=== PATIENT | female | born 1955 | race Caucasian/White ===

== ENCOUNTER 2019-04-20 14:54 | Emergency (ER) | payer BC ==
--- NOTE | 2019-04-20 15:50 | EDM.PDOC ---
<Dilia Renteria - Last Filed: 04/20/19 15:40> ED HPI GENERAL MEDICAL PROBLEM - General Chief Complaint: Chest Pain Stated Complaint: CHEST/BACK TIGHTNESS/DIARRHEA Time Seen by Provider: 04/20/19 15:16 Source of Information: Reports: Patient History Limitations: Reports: No Limitations - History of Present Illness INITIAL COMMENTS - FREE TEXT/NARRATIVE: Patient is a pleasant 63-year-old female who presents to the ED with complaints of two days of chest pain that is constant, however the severity of the pain varies. She reports the pain increases with deep breaths, certain movements, and with eating. She notes the pain varies between a 5-8/10 and she describes it as a pressure in her chest. She does get short of breath occasionally when the pain occurs. She has taken ibuprofen for this, however it has only taken the edge off the pain at night so she can sleep. 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 She states the past couple days at week she has had to do more physical lifting of patients and that is when the pain really started to bother her. Last episode of similar pain was three weeks ago. She stated multiple times during the interview that she does not want Dilaudid or Morphine for the pain, and the only medication that works for her is Hydrocodone. She denies nausea, vomiting, and numbness/tingling. Chest Pain Score (Numeric/FACES): 6 - Related Data Allergies Allergy/AdvReac Type Severity Reaction Status Date / Time No Known Allergies Allergy Verified 04/20/19 15:20 Home Meds: Home Meds . [No Known Home Meds] 04/20/19 [History] Past Medical History Respiratory History: Reports: Asthma Social & Family History - Tobacco Use Smoking Status *Q: Never Smoker ED ROS GENERAL - Review of Systems Review Of Systems: See Below Constitutional: Reports: Decreased Appetite (because it increases the chest pain ). Denies: Fever, Chills, Weakness, Fatigue Respiratory: Reports: Shortness of Breath (occasionally with chest pain). Denies: Wheezing, Cough Cardiovascular: Reports: Chest Pain (describes as pressure). Denies: Edema, Lightheadedness, Syncope GI/Abdominal: Reports: No Symptoms. Denies: Abdominal Pain, Diarrhea, Nausea, Vomiting Musculoskeletal: Reports: Muscle Pain (generalized chest). Denies: Neck Pain, Back Pain Skin: Reports: No Symptoms. Denies: Rash Neurological: Reports: No Symptoms. Denies: Dizziness, Headache, Numbness, Syncope, Tingling, Weakness Psychiatric: Reports: No Symptoms ED EXAM, GENERAL - Physical Exam Exam: See Below Exam Limited By: No Limitations General Appearance: Alert, WD/WN, No Apparent Distress Neck: Normal Inspection, Supple, Non-Tender, Full Range of Motion Respiratory/Chest: No Respiratory Distress, Lungs Clear, Normal Breath Sounds, No Accessory Muscle Use, Other (chest tender with palpation over sternum and upper right chest) Cardiovascular: Normal Peripheral Pulses, Regular Rate, Rhythm, No Edema, No Murmur GI/Abdominal: Normal Bowel Sounds, Soft, Non-Tender, No Organomegaly, No Distention, No Mass Back Exam: Normal Inspection, Full Range of Motion, NT Extremities: Normal Inspection, Normal Range of Motion, Non-Tender, Normal Capillary Refill, No Pedal Edema Neurological: Alert, Oriented, Normal Cognition, No Motor/Sensory Deficits Psychiatric: Normal Affect, Normal Mood Skin Exam: Warm, Dry, Intact, Normal Color, No Rash Course - Vital Signs Last Recorded V/S: Last Vital Signs Temp 97.8 F 04/20/19 18:15 Pulse 74 04/20/19 18:15 Resp 13 04/20/19 18:15 BP 126/84 04/20/19 18:15 Pulse Ox 98 04/20/19 18:15 - Orders/Labs/Meds Labs: Laboratory Tests 04/20/19 04/20/19 Range/Units 15:54 15:54 WBC 7.00 (3.98-10.04) K/mm3 RBC 4.96 (3.98-5.22) M/mm3 Hgb 14.2 (11.2-15.7) gm/dl Hct 44.8 (34.1-44.9) % MCV 90.3 (79.4-94.8) fl MCH 28.6 (25.6-32.2) pg MCHC 31.7 L (32.2-35.5) g/dl RDW Std Deviation 46.6 H (36.4-46.3) fL Plt Count 312 (182-369) K/mm3 MPV 11.3 (9.4-12.3) fl Neut % (Auto) 68.8 (34.0-71.1) % Lymph % (Auto) 17.1 L (19.3-51.7) % Floyd % (Auto) 12.3 (4.7-12.5) % Eos % (Auto) 1.1 (0.7-5.8) Baso % (Auto) 0.4 (0.1-1.2) % Neut # (Auto) 4.81 (1.56-6.13) K/mm3 Lymph # (Auto) 1.20 (1.18-3.74) K/mm3 Floyd # (Auto) 0.86 H (0.24-0.36) K/mm3 Eos # (Auto) 0.08 (0.04-0.36) K/mm3 Baso # (Auto) 0.03 (0.01-0.08) K/mm3 Sodium 139 (136-145) mEq/L Potassium 4.0 (3.5-5.1) mEq/L Chloride 103 (98-107) mEq/L Carbon Dioxide 26 (21-32) mEq/L Anion Gap 14.0 (5-15) BUN 12 (7-18) mg/dL Creatinine 0.9 (0.55-1.02) mg/dL Est Cr Clr Drug Dosing 62.99 mL/min Estimated GFR (MDRD) > 60 (>60) mL/min BUN/Creatinine Ratio 13.3 L (14-18) Glucose 124 H (80-115) mg/dL Calcium 8.8 (8.5-10.1) mg/dL Total Bilirubin 0.4 (0.2-1.0) mg/dL AST 15 (15-37) U/L ALT 28 (14-59) U/L Alkaline Phosphatase 85 (46-116) U/L Troponin I < 0.017 (0.00-0.056) ng/mL Total Protein 7.6 (6.4-8.2) g/dl Albumin 3.5 (3.4-5.0) g/dl Globulin 4.1 gm/dL Albumin/Globulin Ratio 0.9 L (1-2) Departure - Departure Disposition: Home, Self-Care 01 Clinical Impression: Chest wall pain, Atypical chest pain Instructions: Chest Wall Pain, [id number], Nonspecific Chest Pain, Easy-to- Read Referrals: PCP,Not In Area [Primary Care Provider] - Forms: ED Department Discharge, ED Return to Work/School Form Additional Instructions: Rest, no heavy lifting until pain resolving, alternate ice and heat as needed, ibuprofen 200 mg 3-4 times daily with food, you may take Tylenol in addition 2- 3 times daily for extra pain relief as needed. See one of our [facility] medical providers for follow-up, complete physical in about 10-14 days, call [phone] for appointment, return to ED as needed if symptoms worsening in any way. Sepsis Event Note - Evaluation Sepsis Screening Result: No Definite Risk - Focused Exam Date Exam was Performed: 04/20/19 Time Exam was Performed: 15:40 <Herbert Fritz - Last Filed: 04/24/19 10:44> EKG INTERPRETATION EKG Date: 04/20/19 Rhythm: NSR [place]: Normal P-Wave: Present QRS: Normal ST-T: Normal QT: Normal Course - Re-Assessments/Exams Free Text/Narrative Re-Assessment/Exam: 04/20/19 19:10 Initial hx and exam was done by Brittney Sandoval, [employer] student. I agree with hx and exam as documented. I have also interviewed and examined patient. EKG, troponin other labs all relatively normal including troponin Have some chest wall tenderness of the right sternal border. She has no cardiac history or significant risk factors. Discharge instructions as documented. 04/24/19 10:43 Departure - Departure Time of Disposition: 18:11 Condition: Fair Sepsis Event Note - Focused Exam Date Exam was Performed: 04/24/19 Time Exam was Performed: 10:42
== END 2019-04-20 18:19 | disposition home or self-care (01) ==
LOC: JD.ED 14:54
DX: R07.89 Other chest pain (principal)
CPT/HCPCS: 36415; 80053; 84484; 85025; 93005; 93010; 99283; 99285-25